=== PATIENT | male | born 1985 | race Caucasian/White ===

== ENCOUNTER 2016-08-01 23:17 | Emergency (ER) | payer OTHER ==
[~2016-08-01] VITALS: Ht 185.4 cm; Wt 101.3 kg
[2016-08-02 00:07] LABS: ASPARTATE AMINO TRANSFERASE 59 U/L (15-37); BLOOD UREA NITROGEN 34 mg/dL (7-18)
[2016-08-02 01:10] VITALS: BP 130/65
== END 2016-08-02 01:12 | disposition home or self-care (01) ==
LOC: ED 23:59
DX: R55 Syncope and collapse (principal)
CPT/HCPCS: 36415; 71010; 80053; 85025; 93005